=== PATIENT | male | born 1970 | race Caucasian/White ===

== ENCOUNTER 2020-03-26 10:36 | Emergency (ER) | payer SELFPAY ==
[~2020-03-26] VITALS: Ht 180.3 cm; Wt 101.2 kg
--- NOTE | 2020-03-26 10:45 | NUR ---
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 PATIENT A/OX4, VERBALLY RESPONSIVE, NO RESP DISTRESS NOTED, MINIMAL BLEEDING ON FOREHEAD, ATTACHED TO THE CLOTHES SHAKER, VITALS STABLE. DR. GUARDADO AT BEDSIDE FOR EVAL.
[2020-03-26 10:57] LABS: BASOPHILS # (AUTO) 0.1 /CMM (0.0-0.2); BASOPHILS % (AUTO) 0.5 % (0.0-2.0); EOSINOPHILS % (AUTO) 1.8 % (0.0-6.0); HEMATOCRIT 40 % (39-51); HEMOGLOBIN 13.5 g/dL (13.5-17.5); LYMPHOCYTES # (AUTO) 1.2 /CMM (0.8-4.8); LYMPHOCYTES % (AUTO) 8.5 % (20.0-44.0); MEAN CORPUSCULAR HGB CONC 34 g/dl (31.0-36.0); MEAN CORPUSCULAR VOLUME 91 fL (80-96); MONOCYTES # (AUTO) 1.2 /CMM (0.1-1.30); MONOCYTES % (AUTO) 7.9 % (2.0-12.0); NEUTROPHILS # (AUTO) 11.8 /CMM (1.8-8.9); NEUTROPHILS % (AUTO) 81.3 % (43.0-81.0); PLATELET COUNT (AUTO) 269 /CMM (150-450); WHITE BLOOD COUNT (AUTO) 14.6 K/uL (4.3-11.0)
[2020-03-26 11:02] LABS: CARBON DIOXIDE 22 mmol/L (21-32); CHLORIDE 103 mmol/L (98-107); CREATININE 1.2 mg/dL (0.6-1.3); GLUCOSE 131 mg/dL (74-106); POTASSIUM 4.1 mmol/L (3.5-5.1); SODIUM SERUM 135 mmol/L (136-145); UREA NITROGEN, BLOOD 22 mg/dL (7-18)
--- NOTE | 2020-03-26 11:40 | NUR ---
patient came back from CT scan.
--- NOTE | 2020-03-26 12:47 | NUR ---
Friend/coworker came and stated patient appears to be within baseline mental status. Patient a/ox4, verbally responsive, breathing even and unlabored, no sob noted. Ambulatory with steady gait. Denies pain or any other complaints. IV removed. Catheter intact and site benign. Pressure and 4x4 applied to site. No bleeding noted. Patient discharged to home in stable condition. Written and verbal after care instructions given. Patient verbalizes understanding of instruction. Instructed not to drive.
[2020-03-26 12:50] VITALS: BP 111/69
== END 2020-03-26 12:51 | disposition home or self-care (01) ==
LOC: ER 10:36
DX: S00.81XA Abrasion of other part of head, initial encounter (principal); R55 Syncope and collapse; X58.XXXA Exposure to other specified factors, initial encounter; Y93.89 Activity, other specified; Y92.89 Other specified places as the place of occurrence of the external cause; Y99.8 Other external cause status
CPT/HCPCS: 36415; 70450-TC; 71045-TC; 80048-TC; 84484-TC; 85025-TC